=== PATIENT | female | born 1995 | race Caucasian/White ===

== ENCOUNTER 2017-01-09 01:54 | Emergency (ER) | payer SELFPAY ==
[2017-01-09] MEDS ORDERED: Ondansetron INJ* 2 MG/ML VIAL IV ONE (02:32)
[2017-01-09] MEDS ORDERED: NS 0.9% 1000 ML* 1,000 ML IV SCH (02:45)
[2017-01-09 03:12] LABS: Alcohol 347 mg/dL (<10)
--- NOTE | 2017-01-09 06:54 | ED ---
Kvng Hand Nikita, scribed for Alexx Wells MD on 01/09/17 at 0210 . Substance Abuse/Use - HPI Summary HPI Summary: This patient is a 21 year old F BIBA to ED with a chief complaint of ETOH intoxication. The pt drank [place] iced teas. The patient rates the pain 0/10 in severity. Symptoms aggravated by nothing. Symptoms alleviated by nothing. Patient has vomited. Patient denies any trauma. Per EMS, "not a single thing she said made sense", her pupils were very large, and she wouldn't tell them what she ingested. - History Of Current Complaint Chief Complaint: EDSubstanceAbuse Stated Complaint: 2208 Time Seen by Provider: 01/09/17 02:02 Hx Obtained From: Patient, EMS Hx From Patient Unobtainable Due To: Other - alcohol intoxication Onset/Duration of Drug/ETOH Abuse: Hours - DOCUMENTATION ANALYST Ingestion History: Type/Name Of Drug - [place] iced teas Aggravating Factor(s): Nothing Alleviating Factor(s): Nothing Associated Signs And Symptoms: Other: - pt has vomited; no trauma PMH/Surg Hx/FS Hx/Imm Hx Infectious Disease History: No Infectious Disease History: Denies: Traveled Outside the [place] in Last 30 Days - Social History Alcohol Use: Weekly Substance Use Type: Reports: None Smoking Status (MU): Unknown if Ever Smoked Review of Systems Positive: Other - alcohol intoxication Positive: Vomiting All Other Systems Reviewed And Are Negative: Yes Physical Exam Triage Information Reviewed: Yes Vital Signs On Initial Exam: Initial Vitals Temp Pulse Resp BP Pulse Ox 98.1 F 139 16 128/52 99 01/09/17 02:00 01/09/17 02:00 01/09/17 02:00 01/09/17 02:00 01/09/17 02:00 Vital Signs Reviewed: Yes Completion Of Physical Exam Limited Due To: Other - alcohol intoxication Appearance: Positive: No Pain Distress - smells of alcohol and vomit. Negative : Signs of Trauma Neurological: Positive: Other - stuporous, responds to voice Diagnostics - Vital Signs Vital Signs Temp Pulse Resp BP Pulse Ox 01/09/17 02:00 98.1 F 139 16 128/52 99 - Laboratory Lab Results: Lab Results 01/09/17 Range/Units 02:08 Beta HCG, Quant < 0.60 mIU/mL Serum Alcohol 347 H (<10) mg/dL Lab Statement: Any lab studies that have been ordered have been reviewed, and results considered in the medical decision making process. Course/Dx - Course Assessment/Plan: This patient is a 21 year old F BIBA to ED with a chief complaint of ETOH intoxication. The pt drank [place] iced teas. The patient rates the pain 0/10 in severity. Symptoms aggravated by nothing. Symptoms alleviated by nothing. Patient has vomited. Patient denies any trauma. Medications reviewed. - Diagnoses Provider Diagnoses: Alcohol intoxication Discharge - Discharge Plan Condition: Stable Disposition: HOME Patient Education Materials: Alcohol Intoxication (ED) [facility] Additional Instructions: FOLLOW UP WITH YOUR DOCTOR. RETURN TO THE EMERGENCY DEPARTMENT FOR ANY WORSENING OF YOUR CONDITION OR QUESTIONS OR CONCERNS. The documentation as recorded by the Kvng fernandez Nikita accurately reflects the service I personally performed and the decisions made by me, Alexx Wells MD.
[2017-01-09 07:33] VITALS: BP 111/58
== END 2017-01-09 08:04 | disposition home or self-care (01) ==
LOC: ED 01:54
DX: F10.129 Alcohol abuse with intoxication, unspecified (principal); Y90.8 Blood alcohol level of 240 mg/100 ml or more
CPT/HCPCS: 36415; 80320; 84702; 96374; 96375; 99282; G0480; J2405

== ENCOUNTER 2018-12-29 20:56 | Emergency (ER) | payer OTHER ==
[2018-12-29 21:14] VITALS: BP 144/95
--- NOTE | 2018-12-29 21:38 | UC ---
Abdominal Pain Female HPI - HPI Summary HPI Summary: Patient presents to urgent care stating today she's been having some lower abdominal cramping. Patient states she is on day 4 of her period. She states she started to wonder she had a retained tampon in the cramping seemed to increase. Patient states has been no vaginal odor, itching. No back pain. No nausea or vomiting. No analgesic taken. No dysuria or hematuria. No vaginal itching. Patient states she is not sexually active. Patient with any concern of STI. denies any sick contacts. Patient states menses is as scheduled earlier not longer not have ear Occasions review this visit. - History of Current Complaint Chief Complaint: UCGU Stated Complaint: ABDOMINAL PAIN Time Seen by Provider: 12/29/18 21:16 Hx Obtained From: Patient Hx Last Menstrual Period: 12/25/18 ?: No Onset/Duration: Gradual Onset Severity Initially: Mild Severity Currently: Mild Pain Intensity: 3 Allergies/Adverse Reactions: Allergies Allergy/AdvReac Type Severity Reaction Status Date / Time No Known Allergies Allergy Verified 01/09/17 03:05 Home Medications: Home Medications NK [No Home Medications Reported] 12/29/18 [History Confirmed 12/29/18] PMH/Surg Hx/FS Hx/Imm Hx Previously Healthy: Yes - Surgical History Surgical History: None - Family History Known Family History: Positive: Non-Contributory - Social History Occupation: Student Lives: Dormitory/Roommates Alcohol Use: Weekly Substance Use Type: None Smoking Status (MU): Never Smoked Tobacco Review of Systems All Other Systems Reviewed And Are Negative: Yes Constitutional: Positive: Negative Skin: Positive: Negative Eyes: Positive: Negative Gastrointestinal: Positive: Abdominal Pain. Negative: Vomiting, Nausea Genitourinary: Positive: Other - Current menses. Negative: Vaginal/Penile Burning, Vaginal/Penile Itching, Vaginal/Penile Discharge, Vaginal/Penile Pain, Vaginal/Penile Tenderness Physical Exam - Summary Physical Exam Summary: Vital Signs Reviewed: Yes A+Ox3, no distress Eyes: Conjunctiva Clear, ENT: Hearing grossly normal mmoist Neck: Positive: Supple Respiratory: Positive: No respiratory distress, No accessory muscle use + CTA throughout no w/r Cardiovascular: RRR nl s1, s2 no m/r CBT <2 sec abd soft + BS soft, nontender, nondistended. no CVA no guarding, no distension ; RN at bedside - no external lesion, no retained gc, full visualization of cervix and os - cleaned mucous and scant blood from os Musculoskeletal Exam: CLAIRE x 4 without difficulty Strength Intact, ROM Intact Neurological: Positive: Alert, + sensation throughout Psychological: Positive: Normal Response To examiner Skin: Positive: no rash, no ecchymosis Triage Information Reviewed: Yes Vital Signs: Initial Vital Signs Temp 100.2 F 12/29/18 21:06 Pulse 80 12/29/18 21:06 Resp 18 12/29/18 21:06 BP 144/95 12/29/18 21:06 Pulse Ox 98 12/29/18 21:06 Abd Pain Female Course/Dx - Course Course Of Treatment: Patient presents urgent care concerned she may have a retained tampon. Patient is 23-year-old not sexually active. Patient states. Pre-patient states she uses tampons. Patient states a little bit of lower abdominal cramping which is unusual for her. Patient states she got concerned she could have a retained tampon wanted it checked. No dysuria or hematuria. No vaginal odor, itching, discharge. Patient has not taken anything for pain. On exam vital signs are stable. Patient's exam is non-concerning. Abdomen is soft. On pelvic exam there is no foreign body observed. Clean cervix and os with cleaning, no foreign retained foreign body. There has 3+ blood but no sensory N discussed with patient she is nontoxic. Patient states she feels better knowing there is no foreign body. We'll send patient home. Patient to monitor her symptoms closely. Advised patient for his murmur focused to help with anything changes. Patient states comfort and agreement with plan. - Differential Dx/Diagnosis Provider Diagnosis: Abdominal cramping Discharge ED - Sign-Out/Discharge Documenting (check all that apply): Patient Departure All imaging exams completed and their final reports reviewed: No Studies - Discharge Plan Condition: Stable Disposition: HOME Patient Education Materials: Abdominal Pain (ED) Referrals: [facility] [Provider Group] No Primary Care Phys,[facility] [Primary Care Provider] - Additional Instructions: - Stay well hydrated. Drink plenty of non-alcoholic, non-caffinated beverages - Okay to alternate ibuprofen (Advil, Motrin) and Tylenol (acetaminophen) every 3 hours for pain or fever. Take with food. Do NOT take for more than 4-5 days. -get plenty of restful sleep - As discussed, the doctor that evaluated you today thinks it is okay for you to go home. It is important that you monitor your symptom closely - if you develop increased pain, fever, vomiting, diarrhea, or other concerns it is recommended you go to the emergency department for further evaluation and treatment - Billing Disposition and Condition Condition: STABLE Disposition: Home
== END 2018-12-29 21:45 | disposition home or self-care (01) ==
LOC: UCEAST 20:56
DX: R10.30 Lower abdominal pain, unspecified (principal)
CPT/HCPCS: 81003; 99212; G0463